=== PATIENT | female | born 1990 | race Two or more races ===

== ENCOUNTER 2023-09-27 09:19 | Outpatient (CLI) | payer OTHER ==
[~2023-09-27 09:19] MED LIST: ONDANSETRON ODT8 MG PO; PRENA1 CHEW TA1.4 MG; PRENA1 TRUE CO1 EACH PO
== END 2023-09-27 09:24 | disposition home or self-care (01) ==
LOC: PRENATAL 09:19
PROVIDERS: ATTEND Obstetrics & Gynecology Maternal & Fetal Medicine
DX: O36.80X0 Pregnancy with inconclusive fetal viability, not applicable or unspecified (principal); Z36.82 Encounter for antenatal screening for nuchal translucency; O99.210 Obesity complicating pregnancy, unspecified trimester; Z3A.13 13 weeks gestation of pregnancy

== ENCOUNTER 2023-10-22 22:30 | Emergency (ER) | payer OTHER ==
[~2023-10-22] VITALS: Ht 157.5 cm; Wt 104.8 kg
[2023-10-22] MEDS ORDERED: UNISOM25 MG PO (22:40)
[2023-10-23] MEDS ORDERED: METOCLOPRAMIDE HCL 5 MG/ML VIAL IM STA (00:55)
[2023-10-23] MEDS ORDERED: RINGERS SOLUTION,LACTATED 1,000 ML IV STA (00:55)
[2023-10-23] MEDS ORDERED: ONDANSETRON HCL 2 MG/ML VIAL IV STA (00:56)
[2023-10-23] MEDS ORDERED: FAMOtidine 10 MG/ML (4ML VIAL) IV PUSH STA (00:57)
[2023-10-23] MEDS ORDERED: FAMOtidine 200mg/20ml VIAL ONE (01:14)
[2023-10-23] MEDS ORDERED: ONDANSETRON HCL 2 MG/ML VIAL ONE (01:14)
[2023-10-23] MEDS ORDERED: METOCLOPRAMIDE HCL 5 MG/ML VIAL ONE (01:14)
[2023-10-23 01:40] LABS: HEMATOCRIT 34.9 % (36.0-45.00); HEMOGLOBIN 11.9 g/dL (12.0-15.00); MEAN CELL VOLUME 88.1 fL (80.00-100.00); MEAN CORPUSCULAR HGB CONC 34.1 g/dl (32.0-36.0); PLATELET COUNT 283 K/uL (150-450); RED BLOOD COUNT 3.96 M/uL (4.00-6.00); RED CELL DISTRIBUTION WIDTH 13.8 % (11.5-14.5)
[2023-10-23 01:55] LABS: INR 1.01; PARTIAL THROMBOPLASTIN TIME 27.7 SECONDS (22.0-34.0); PROTHROMBIN TIME 10.6 SECONDS (9.0-11.5)
[2023-10-23 02:13] LABS: ALBUMIN 2.7 gm/dL (3.4-5.0); BILIRUBIN TOTAL 0.25 mg/dL (0.3-1.2); CALCIUM 9.2 mg/dL (8.5-10.1); CREATININE SERUM 0.48 mg/dL (0.55-1.02); GFR 150.85; GLOBULINA 4.3 G/DL (2.4-3.5); POTASSIUM 3.76 mEq/L (3.5-5.1)
== END 2023-10-23 03:39 | disposition home or self-care (01) ==
LOC: ER 22:31
DX: O21.0 Mild hyperemesis gravidarum (principal); O26.891 Other specified pregnancy related conditions, first trimester; K29.70 Gastritis, unspecified, without bleeding; Z3A.10 10 weeks gestation of pregnancy

== ENCOUNTER 2023-11-29 09:21 | Outpatient (CLI) | payer OTHER ==
[~2023-11-29 09:21] MED LIST changes: +UNISOM25 MG PO
== END 2023-11-29 09:22 | disposition home or self-care (01) ==
LOC: PRENATAL 09:21
PROVIDERS: ATTEND Obstetrics & Gynecology Maternal & Fetal Medicine
DX: O35.9XX0 Maternal care for (suspected) fetal abnormality and damage, unspecified, not applicable or unspecified (principal); O35.3XX0 Maternal care for (suspected) damage to fetus from viral disease in mother, not applicable or unspecified; O44.02 Complete placenta previa NOS or without hemorrhage, second trimester; O99.212 Obesity complicating pregnancy, second trimester; Z3A.23 23 weeks gestation of pregnancy

== ENCOUNTER 2023-12-29 11:28 | Outpatient (CLI) | payer OTHER | END 2023-12-29 11:29 | disposition home or self-care (01) | LOC: PRENATAL 11:28 | PROVIDERS: ATTEND Obstetrics & Gynecology Maternal & Fetal Medicine | DX: O26.849 Uterine size-date discrepancy, unspecified trimester (principal); O99.210 Obesity complicating pregnancy, unspecified trimester; Z3A.28 28 weeks gestation of pregnancy ==

== ENCOUNTER 2024-03-17 23:00 | Inpatient (IN) | payer OTHER ==
[~2024-03-17] VITALS: Ht 157.5 cm; Wt 117.9 kg
[2024-03-17 22:20] VITALS: BP 129/76
[2024-03-17] MEDS ORDERED: RINGERS SOLUTION,LACTATED 1,000 ML IV SCH (23:15)
[2024-03-17 23:26] VITALS: BP 127/77
[2024-03-18 00:11] LABS: URINE APPEARANCE Clear; URINE BILIRRUBIN Negative (NEGATIVE); URINE BLOOD Moderate; URINE COLOR Yellow; URINE GLUCOSE Negative (NEGATIVE); URINE KETONE Negative (NEGATIVE); URINE LEUKOCYTE Small; URINE NITRATE Negative; URINE PROTEIN Negative (NEGATIVE)
[2024-03-18 00:13] LABS: HEMATOCRIT 34.6 % (36.0-45.00); HEMOGLOBIN 11.7 g/dL (12.0-15.00); MEAN CORPUSCULAR HEMOGLOBIN 29.7 pg (27.00-32.0); MEAN CORPUSCULAR HGB CONC 33.7 g/dl (32.0-36.0); PLATELET COUNT 303 K/uL (150-450); RED BLOOD COUNT 3.94 M/uL (4.00-6.00); RED CELL DISTRIBUTION WIDTH 14.3 % (11.5-14.5)
[2024-03-18 00:15] LABS: URINE BACTERIA 447.8 uL (0.0-1933); URINE EPITHELIAL CELLS 55.2 uL (0.0-38.8); URINE RBC 4.7 uL (0.0-20.8); URINE WBC 76.4 uL (0.0-23.2)
[2024-03-18 00:55] LABS: URINE CAST 0.14 uL (0.0-1.40)
[2024-03-18 05:00] VITALS: BP 129/76
[2024-03-18 07:14] VITALS: BP 104/74
[2024-03-18] MEDS ORDERED: OXYTOCIN 500 ML IV SCH (08:15)
[2024-03-18] MEDS ORDERED: PROMETHAZINE HCL 25 MG/ML AMPUL IV NR (08:15)
[2024-03-18] MEDS ORDERED: MEPERIDINE HCL/PF 50 MG/ML VIAL IV ONE (08:15)
[2024-03-18 11:32] VITALS: BP 130/777
[2024-03-18 11:45] VITALS: BP 111/63
[2024-03-18] MEDS ORDERED: ERYTHROMYCIN BASE OPHT 1GM EACH TUBE OP ONE (12:00)
[2024-03-18] MEDS ORDERED: LIDOCAINE HCL 1% 10ML VIAL IJ ONE (12:00)
[2024-03-18 13:14] VITALS: BP 133/85
[2024-03-18 15:04] VITALS: BP 133/85
[2024-03-18] MEDS ORDERED: IBUprofen 600 MG TABLET PO SCH (18:00)
[2024-03-19 00:32] VITALS: BP 108/75
[2024-03-19 07:29] LABS: ALBUMIN 2.8 gm/dL (3.4-5.0); BILIRUBIN TOTAL 0.43 mg/dL (0.3-1.2); CALCIUM 9.3 mg/dL (8.5-10.1); CREATININE SERUM 0.62 mg/dL (0.55-1.02); GFR 111.55; GLOBULINA 3.5 G/DL (2.4-3.5); POTASSIUM 4.36 mEq/L (3.5-5.1); TOTAL PROTEIN 6.3 gm/dL (6.4-8.2)
[2024-03-19 07:43] LABS: INR 1.01; PARTIAL THROMBOPLASTIN TIME 27.5 SECONDS (22.0-34.0)
[2024-03-19 08:13] VITALS: BP 126/78
[2024-03-19 18:06] LABS: HEMATOCRIT 28.4 % (36.0-45.00); MEAN CELL VOLUME 89.5 fL (80.00-100.00); MEAN CORPUSCULAR HGB CONC 32.9 g/dl (32.0-36.0); PLATELET COUNT 288 K/uL (150-450); RED BLOOD COUNT 3.18 M/uL (4.00-6.00); RED CELL DISTRIBUTION WIDTH 14.5 % (11.5-14.5)
[2024-03-19 18:07] LABS: HEMOGLOBIN 9.3 g/dL (12.0-15.00); MEAN CORPUSCULAR HEMOGLOBIN 29.2 pg (27.00-32.0)
[2024-03-19 23:29] VITALS: BP 150/89
[2024-03-20] MEDS ORDERED: FUSION PLUS CA1 EACH PO (11:30)
[2024-03-20] MEDS ORDERED: IBU600 MG PO (11:33)
== END 2024-03-20 16:54 | disposition home or self-care (01) | DRG 807 ==
LOC: OBS/DEL 23:00 → LDR 03-18 04:32 → OB/GYN 03-18 04:32
PROVIDERS: Obstetrics & Gynecology; ADMIT Specialist; ATTEND Specialist
PROC: 10E0XZZ Delivery of Products of Conception, External Approach (ICD-10-PCS; principal; 2024-03-18)
PROC: 0KQM0ZZ Repair Perineum Muscle, Open Approach (ICD-10-PCS; 2024-03-18)
PROC: 4A1HXCZ Monitoring of Products of Conception, Cardiac Rate, External Approach (ICD-10-PCS; 2024-03-18)
DX: O70.1 Second degree perineal laceration during delivery (principal); Z37.0 Single live birth; Z3A.39 39 weeks gestation of pregnancy; Z20.822 Contact with and (suspected) exposure to COVID-19

== ENCOUNTER 2024-08-20 10:00 | Emergency (ER) | payer OTHER ==
[~2024-08-20] VITALS: Ht 157.5 cm; Wt 97.1 kg
[~2024-08-20 10:00] MED LIST changes: +FUSION PLUS CA1 EACH PO; +IBU600 MG PO
[2024-08-20] MEDS ORDERED: 0.9 % SODIUM CHLORIDE 1,000 ML IV ONE (11:15)
[2024-08-20 12:16] LABS: BASO % 0.4 % (0.1-1.2); EOS # 0.08 (0.04-0.54); EOS % 0.8 % (0.7-7.0); HEMATOCRIT 35.7 % (34.1-44.9); HEMOGLOBIN 11.8 g/dL (11.2-15.7); LYMPH # 2.23 (1.18-3.74); LYMPH % 22.1 % (19.3-53.1); MEAN CORPUSCULAR HEMOGLOBIN 28.2 pg (25.6-32.2); MONO # 0.28 (0.24-0.82); MONO % 2.8 % (4.7-12.5); NEUT # 7.45 (1.56-6.13); NEUT % 73.7 % (34.0-71.1); PLATELET COUNT 325 K/uL (163-369); RED BLOOD COUNT 4.18 M/uL (3.93-5.22); RED CELL DISTRIBUTION WIDTH 14.1 % (11.6-14.4)
[2024-08-20 13:35] LABS: ALBUMIN 3.6 gm/dL (3.4-5.0); ALKALINE PHOSPHATASE 130 U/L (50-136); ALT/SGPT 20 U/L (12-78); ANION GAP 15 (10.0-20.0); AST/SGOT 17 U/L (15-37); BILIRUBIN TOTAL 0.62 mg/dL (0.3-1.2); BLOOD UREA NITROGEN 14 mg/dL (7-18); BUN CREA RATIO 18 (7.0-25.0); CARBON DIOXIDE 21 mEq/L (21-32); CHLORIDE 110 mmol/L (98-107); CREATININE SERUM 0.79 mg/dL (0.55-1.02); GFR 84.34; GLOBULINA 3.9 G/DL (2.4-3.5); GLUCOSE FASTING 55 mg/dL (65-100); OSMOLALITY SERUM 281 MOSM/KG (275-295); POTASSIUM 4.21 mEq/L (3.5-5.1); SODIUM 142 mmol/L (136-145); TOTAL PROTEIN 7.5 gm/dL (6.4-8.2)
[2024-08-20 13:36] LABS: HCG QUANTITATIVE < 1 mUI/mL (1-3)
[2024-08-20 15:09] LABS: PH,URINE 5.5 (5.0-8.0); URINE APPEARANCE Clear; URINE BILIRRUBIN Negative (NEGATIVE); URINE BLOOD Negative; URINE COLOR Yellow; URINE GLUCOSE Negative (NEGATIVE); URINE LEUKOCYTE Trace; URINE NITRATE Negative; URINE PROTEIN Negative (NEGATIVE); URINE UROBILINOGEN 0.2 E.U./dl
[2024-08-20 15:13] LABS: URINE BACTERIA 1945.9 uL (0.0-1933); URINE EPITHELIAL CELLS 95.4 uL (0.0-38.8); URINE RBC 8.3 uL (0.0-20.8)
[2024-08-20 15:29] LABS: URINE CAST 1.17 uL (0.0-1.40); URINE KETONE >=160 (NEGATIVE)
[2024-08-20] MEDS ORDERED: BACTRIM DS TAB1 EACH PO (15:38)
[2024-08-20] MEDS ORDERED: PEPCID AC20 MG PO (15:38)
== END 2024-08-20 16:12 | disposition home or self-care (01) ==
LOC: ER 10:00
PROVIDERS: General Practice
DX: R42 Dizziness and giddiness (principal)